=== PATIENT | female | born 1955 | race African-American/Black ===

== ENCOUNTER 2017-06-11 13:48 | Inpatient (IN) | payer BC ==
[~2017-06-11] VITALS: Ht 162.6 cm; Wt 77.6 kg
[2017-06-11 15:36] LABS: BASOPHIL % 0.5 % (0-2); PLATELET COUNT 350 x10^3mcL (130-400)
[2017-06-11 15:37] LABS: RED CELL DISTRIBUTION WIDTH 14.7 % (11.5-14.5)
[2017-06-11 15:41] LABS: CALCIUM 9.7 mg/dL (8.5-10.1); CARBON DIOXIDE 26.7 mmol/L (21-32); CHLORIDE SERUM 106 mmol/L (98-107); CREATININE SERUM 0.9 mg/dL (0.6-1.0); GFR1 > 60 mL/min; GLUCOSE SERUM 72 mg/dL (74-106); POTASSIUM SERUM 3.6 mmol/L (3.5-5.1); SODIUM SERUM 144 mmol/L (136-145)
[2017-06-11 15:44] LABS: ALBUMIN 4.2 g/dL (3.4-5.0); ALKALINE PHOSPHATASE 78 U/L (46-116); ALT/SGPT 31 U/L (14-59); AST/SGOT 13 U/L (15-37); BILIRUBIN TOTAL 0.4 mg/dL (0.20-1.00); TOTAL PROTEIN, SERUM 8.8 g/dL (6.4-8.2)
[2017-06-11] MEDS ORDERED: NEXIUM40 MG PO (16:05)
[2017-06-11] MEDS ORDERED: PEPCID20 MG PO (16:06)
[2017-06-11] MEDS ORDERED: MAGNESIUM OXID400 MG PO ×2 (16:07)
[2017-06-11] MEDS ORDERED: VITAMIN D400 UNIT PO (16:08)
[2017-06-11 17:01] VITALS: BP 162/94
[2017-06-11 17:31] LABS: MAGNESIUM 2.3 mg/dL (1.8-2.4); PHOSPHOROUS 3.3 mg/dL (2.5-4.9)
[2017-06-11 17:33] LABS: CHOLESTEROL/HDL RATIO 3.7
[2017-06-11 17:37] LABS: T3 TOTAL 1.18 ng/mL
[2017-06-11 18:07] VITALS: BP 148/92
[2017-06-11 18:15] LABS: FREE T4 0.93 ng/dL (0.76-1.46); FREE THYROXINE INDEX 2.5 ug/dL (1.4-4.5)
[2017-06-11 20:45] VITALS: BP 128/79
[2017-06-12 06:36] LABS: CALCIUM 8.9 mg/dL (8.5-10.1); CARBON DIOXIDE 25.4 mmol/L (21-32); CHLORIDE SERUM 109 mmol/L (98-107); CREATININE SERUM 0.9 mg/dL (0.6-1.0); GFR1 > 60 mL/min; GLUCOSE SERUM 82 mg/dL (74-106); POTASSIUM SERUM 3.5 mmol/L (3.5-5.1); SODIUM SERUM 144 mmol/L (136-145)
[2017-06-12 06:47] LABS: BASOPHIL % 0.3 % (0-2); PLATELET COUNT 278 x10^3mcL (130-400); RED CELL DISTRIBUTION WIDTH 14.5 % (11.5-14.5)
[2017-06-12 09:23] VITALS: BP 123/72
[2017-06-12 13:27] VITALS: BP 139/82
[2017-06-12] MEDS ORDERED: MECLIZINE HCL12.5 MG PO (15:47)
[2017-06-12] MEDS ORDERED: ZOF4 PO (15:48)
[2017-06-12] MEDS ORDERED: LIPI10 PO (15:55)
[2017-06-12 16:21] VITALS: BP 139/82
== END 2017-06-12 17:30 | disposition home or self-care (01) | DRG 74 ==
LOC: ED 13:48 → DU 16:02
PROVIDERS: Emergency Medicine; ADMIT Family Medicine
DX: G90.9 Disorder of the autonomic nervous system, unspecified (principal); I16.0 Hypertensive urgency; R94.31 Abnormal electrocardiogram [ECG] [EKG]; K21.9 Gastro-esophageal reflux disease without esophagitis; E78.5 Hyperlipidemia, unspecified; Z88.6 Allergy status to analgesic agent; Z90.710 Acquired absence of both cervix and uterus
CPT/HCPCS: 83880; 84439; J2405; J7030; J8597; Q0092